=== PATIENT | female | born 2000 | race Caucasian/White ===

== ENCOUNTER 2021-09-26 12:48 | Outpatient (CLI) | payer OTHER, SELFPAY | END 2021-09-26 12:49 | disposition home or self-care (01) | LOC: NFLDREF 12:48 | PROVIDERS: PCP Family Medicine; Visit Provider Family Medicine | DX: Z01.419 Encounter for gynecological examination (general) (routine) without abnormal findings (principal); Z12.4 Encounter for screening for malignant neoplasm of cervix; Z11.3 Encounter for screening for infections with a predominantly sexual mode of transmission | CPT/HCPCS: 87624; 88175 ==

== ENCOUNTER 2024-11-21 16:12 | Outpatient (CLI) | payer BC, SELFPAY ==
[2024-11-23 06:36] LABS: HPV Source Cervix
[2024-11-27 09:25] LABS: Pap Test Digital Imaging Done
== END 2024-11-21 16:13 | disposition home or self-care (01) ==
PROVIDERS: PCP Family Medicine; Visit Provider Family Medicine
DX: Z00.00 Encounter for general adult medical examination without abnormal findings (principal); Z12.4 Encounter for screening for malignant neoplasm of cervix
CPT/HCPCS: 80048; 80061; 84443; 85025; 87624; 87625; 88141; 88142; 88175